=== PATIENT | female | born 1955 | race Asian ===

== ENCOUNTER 2016-11-06 06:20 | Emergency (ER) | payer MEDICAID ==
[~2016-11-06] VITALS: Ht 165.1 cm; Wt 55.0 kg
[~2016-11-06 06:20] MED LIST: CHOL200024 PO; FOLIC; GEMF600T3 PO; GLIM2TAB2 PO; GLIP5TAB10 PO; GLUC1500 PO; HYDR-3307 PO; LISI-167 PO; LOSA50TA2 PO; MECL-85 PO; METF500T4 PO; METH750T87 PO; MULT-717 PO; SIMV40TA3 PO; will bring list DOS
[2016-11-06] MEDS ORDERED: SODIUM CHLORIDE 0.9% 1,000 ML IV ONE (06:49)
[2016-11-06] MEDS ORDERED: FAMOTIDINE 20 MG/2 ML IVP ONE (07:00)
[2016-11-06] MEDS ORDERED: MORPHINE SULFATE 4 MG/ML, 1ML IVPush PRN (07:00)
[2016-11-06] MEDS ORDERED: ONDANSETRON 2MG/ML, 2ML IVPush ONE (07:00)
[2016-11-06] MEDS ORDERED: METF1000 PO (07:00)
[2016-11-06] MEDS ORDERED: SODIUM CHLORIDE 0.9% 1,000ML IVBOLUS ONE (07:00)
[2016-11-06] MEDS ORDERED: ONDANSETRON 2MG/ML, 2ML ONE (07:04)
[2016-11-06] MEDS ORDERED: MORPHINE SULFATE 4 MG/ML, 1ML ONE (07:04)
[2016-11-06] MEDS ORDERED: FAMOTIDINE 20 MG/2 ML ONE (07:04)
[2016-11-06 07:26] LABS: HEMATOCRIT 49.3 % (34.6-47.8); HEMOGLOBIN 16.6 g/dL (11.7-16.4)
[2016-11-06 07:26] LABS: PATH.CAST-FLAG NOT PRESENT; SPERM-FLAG NOT PRESENT; SRC-FLAG NOT PRESENT; XTAL-FLAG NOT PRESENT; YLC-FLAG NOT PRESENT
[2016-11-06 07:33] LABS: ASPARTATE AMINO TRANSFERASE 28 U/L (15-37); BLOOD UREA NITROGEN 20 mg/dL (7-18)
[2016-11-06 08:04] LABS: DIFF TOTAL CELLS COUNTED 100 CELL DIFF
[2016-11-06 08:06] LABS: VERIFY COUNTS? YES
[2016-11-06] MEDS ORDERED: OMNIPAQUE 350 MG/ML, 100ML BOTTLE ONE (08:51)
[2016-11-06] MEDS ORDERED: CEFTRIAXONE PMX 1GM/50ML 50 ML IV ONE (09:30)
[2016-11-06] MEDS ORDERED: CEFTRIAXONE PMX 1GM/50ML 50 ML ONE (09:42)
[2016-11-06 10:03] VITALS: BP 100/54
== END 2016-11-06 10:35 | disposition home or self-care (01) ==
LOC: ED 07:48
DX: N30.90 Cystitis, unspecified without hematuria (principal); A08.4 Viral intestinal infection, unspecified; K85.90 Acute pancreatitis without necrosis or infection, unspecified; I10 Essential (primary) hypertension; E11.9 Type 2 diabetes mellitus without complications; Z90.49 Acquired absence of other specified parts of digestive tract
CPT/HCPCS: 36415; 74020; 74177; 80053; 81001; 83690; 85025; 87086; 89055; 96361; 96365; 96375; 99285; J0696; J2405; J7030; Q9967; S0028